=== PATIENT | female | born 1995 | race Caucasian/White ===

== ENCOUNTER 2020-02-08 21:41 | Emergency (ER) | payer BC ==
[2020-02-08] MEDS ORDERED: Ondansetron 4 MG Tab.DIS PO ONE (21:42)
[2020-02-08] MEDS ORDERED: Ondansetron 4 MG/2 ML SDV IVPUSH ONE (23:16)
[2020-02-08] MEDS ORDERED: Sodium Chloride 0.9% 1,000 ML IV SCH (23:30)
--- NOTE | 2020-02-08 23:52 | EDM.PDOC ---
ED HPI GENERAL MEDICAL PROBLEM - General Chief Complaint: General Stated Complaint: HEAT EXAUSTION Time Seen by Provider: 02/08/20 23:25 Source of Information: Reports: Patient History Limitations: Reports: No Limitations - History of Present Illness INITIAL COMMENTS - FREE TEXT/NARRATIVE: ED with c/o heat exhaustion, reports out in sun 3 hours only today but few days ago was out exposed in sun without drinking much and ended up in ED in [place]. Tonight vomiting x 6 unable to keep small volumes of liquid down, Not voided this manuel. - Related Data Allergies Allergy/AdvReac Type Severity Reaction Status Date / Time No Known Allergies Allergy Verified 02/08/20 23:19 Home Meds: Home Meds . [No Known Home Meds] 02/08/20 [History] Past Medical History - Past Health History Medical/Surgical History: Denies Medical/Surgical History Social & Family History - Family History Family Medical History: Noncontributory - Caffeine Use Caffeine Use: Reports: Coffee - Alcohol Use Days Per Week of Alcohol Use: 3 Number of Drinks Per Day: 2 Total Drinks Per Week: 6 - Recreational Drug Use Recreational Drug Use: No ED ROS GENERAL - Review of Systems Review Of Systems: Comprehensive ROS is negative, except as noted in HPI. ED EXAM, GENERAL - Physical Exam Exam: See Below Exam Limited By: No Limitations General Appearance: Alert, Mild Distress Eye Exam: Bilateral Eye: EOMI Ears: Normal External Exam Nose: Normal Inspection Throat/Mouth: Normal Inspection, Normal Lips, No Airway Compromise Head: Atraumatic, Normocephalic Neck: Normal Inspection Respiratory/Chest: No Respiratory Distress, Lungs Clear, Normal Breath Sounds Cardiovascular: Regular Rate, Rhythm GI/Abdominal: Normal Bowel Sounds, Soft, Non-Tender Back Exam: Normal Inspection Extremities: Normal Inspection Neurological: Alert, Oriented, Normal Cognition Psychiatric: Normal Affect Skin Exam: Warm, Dry, Intact, Normal Color Course - Orders/Labs/Meds Labs: Laboratory Tests 02/08/20 02/08/20 Range/Units 23:25 23:25 WBC 11.0 H (5.0-10.0) 10^3/uL RBC 5.28 (4.2-5.4) 10^6/uL Hgb 15.7 (12.0-16.0) g/dL Hct 44.4 (37.0-47.0) % MCV 84.1 (80-100) fL MCH 29.7 (27.0-34.0) pg MCHC 35.4 H (33.0-35.0) g/dL Plt Count 289 (150-450) 10^3/uL Neut % (Auto) 81.2 H (42.2-75.2) % Lymph % (Auto) 12.9 L (20.5-50.1) % [place] % (Auto) 5.3 (2-8) % Eos % (Auto) 0.4 L (1.0-3.0) % Baso % (Auto) 0.2 (0.0-1.0) % Sodium 141 (136-145) mmol/L Potassium 3.9 (3.5-5.1) mmol/L Chloride 102 (98-107) mmol/L Carbon Dioxide 26 (21-32) mmol/L Anion Gap 16.9 H (7-13) mEq/L BUN 10 (7-18) mg/dL Creatinine 0.74 (0.55-1.02) mg/dL Est Cr Clr Drug Dosing 94.31 mL/min Estimated GFR (MDRD) > 60 BUN/Creatinine Ratio 13.5 (No establ ref range) Glucose 102 H (74-99) mg/dL Calcium 8.7 (8.5-10.1) mg/dL Total Bilirubin 0.8 (0.2-1.0) mg/dL AST 73 H (15-37) U/L ALT 113 H (14-59) U/L Alkaline Phosphatase 58 (46-116) U/L Total Protein 6.7 (6.4-8.2) g/dL Albumin 3.8 (3.4-5.0) g/dL Globulin 2.9 Albumin/Globulin Ratio 1.3 HCG, Qual Negative Meds: Medications Discontinued Medications Generic Name Dose Route Start Last Admin Trade Name Freq PRN Reason Stop Dose Admin Sodium Chloride 1,000 mls @ 999 mls/hr 02/08/20 23:30 02/08/20 23:34 Normal Saline IV 999 mls/hr ASDIRECTED RD Administration Ondansetron HCl 4 mg 02/08/20 23:16 02/08/20 23:34 Zofran IVPUSH 02/08/20 23:17 4 mg ONETIME ONE Administration Ondansetron HCl Confirm 02/09/20 01:01 Zofran Odt Administered 02/09/20 01:02 Dose 8 mg .ROUTE .STK-MED ONE Ondansetron HCl 4 mg 02/08/20 21:42 Zofran Odt PO 02/08/20 21:43 .STK-MED ONE Departure - Departure Time of Disposition: 00:58 Disposition: Home, Self-Care 01 Condition: Good Clinical Impression: Vomiting Qualifiers: Vomiting type: bilious vomiting Nausea presence: with nausea Qualified Code(s) : R11.14 - Bilious vomiting Heat exhaustion Qualifiers: Encounter type: initial encounter Qualified Code(s): T67.5XXA - Heat exhaustion , unspecified, initial encounter - Discharge Information *PRESCRIPTION DRUG MONITORING PROGRAM REVIEWED*: No *COPY OF PRESCRIPTION DRUG MONITORING REPORT IN PATIENT MATEO: No Forms: ED Department Discharge Additional Instructions: Increase fluidsLight diet, advance as tolerated zofran 4mg ODT one every 4 hours as needed for nausea light activity avoid heat and sun
[2020-02-08 23:54] LABS: ANION GAP 16.9 mEq/L (7-13); CHLORIDE,CL 102 mmol/L (98-107); SODIUM,NA 141 mmol/L (136-145)
[2020-02-09] MEDS ORDERED: Ondansetron 4 MG Tab.DIS ONE (01:01)
== END 2020-02-09 01:08 | disposition home or self-care (01) ==
LOC: DL.ED 21:41
DX: T67.5XXA Heat exhaustion, unspecified, initial encounter (principal); R11.14 Bilious vomiting
CPT/HCPCS: 36415; 80053; 84703; 85025; 96361; 96374; 99284; A9270; J2405; J7030